=== PATIENT | male | born 1960 | race African-American/Black ===

== ENCOUNTER 2016-03-02 10:29 | Emergency (ER) | payer SELFPAY ==
[~2016-03-02] VITALS: Ht 177.8 cm; Wt 120.0 kg
[~2016-03-02 10:29] MED LIST: ATEN25TA PO; HYDR12.57 PO
[2016-03-02 10:31] VITALS: BP 124/91; PULSE 67; RESP 15; TEMP 97.9; O2SAT 99
--- NOTE | 2016-03-02 11:37 | PD ---
HPI Chief Complaint: ENT Complaint Time Seen by Provider: 11:35 Travel History International Travel<30 days: No Contact w/Intl Traveler<30days: No Traveled to known affect area: No History of Present Illness HPI 55-year-old male with history of hypertension presents to emergency department for evaluation of left ear. Patient states last night he cleaned his ears and noticed some bloody drainage. He does not recall trauma. He reports no pain. No changes in hearing. No recent illnesses, fever, or chills. He states that he thought about this he felt like he should get it checked out so he came to the emergency department today for evaluation. He has no symptoms at this time. No active bleeding this morning. No drainage on his pillow. No other symptoms to report. History Social History Alcohol Use: Yes (SOCIALLY) Tobacco Use: No Allergies-Medications (Allergen,Severity, Reaction): Coded Allergies: No Known Allergies (Verified , 03/02/16) Reported Meds & Prescriptions Reported Meds & Active Scripts Active Hydrochlorothiazide 12.5 Mg Cap 12.5 Mg PO DAILY Atenolol 25 Mg Tab 25 Mg PO DAILY Review of Systems Except as stated in HPI: all other systems reviewed are Neg Physical Exam Narrative GENERAL: Well-nourished, well-developed male patient, ambulatory in no acute distress SKIN: Warm and dry. HEAD: Normocephalic. No mastoid tenderness EARS: Bilateral pinnae and external canals appear within normal limits. Bilateral tympanic membranes without erythema, dullness or perforation. EYES: No scleral icterus. No injection or drainage. NECK: Supple, trachea midline. No JVD or lymphadenopathy. ENT: Mucosa pink and moist. No erythema or exudates. No uvular edema. No uvular , palatal, or tonsillar deviation. Airway patent. Nasal turbinates appear normal without nasal blood, purulent drainage or septal hematoma. CARDIOVASCULAR: Regular rate and rhythm without murmurs, gallops, or rubs. RESPIRATORY: Breath sounds equal bilaterally. No accessory muscle use. Data Data Last Documented VS Vital Signs Date Time Temp Pulse Resp B/P Pulse Ox O2 Delivery O2 Flow Rate FiO2 03/02/16 10:31 97.9 67 15 124/91 99 MDM Medical Screen Exam Complete: Yes Emergency Medical Condition: No Differential Diagnosis Abrasion versus tympanic membrane rupture versus otitis media versus otitis external Narrative Course 55-year-old male presents to emergency department for evaluation of bloody drainage from his left ear, an isolated incident last night. Physical exam is without any acute concern. Tympanic membrane of the left ureter appears intact. I do not see any bloody discharge within the canal or obvious trauma. Patient is encouraged to follow-up with his primary care provider and to return immediately with any acute worsening of symptoms. At this time there are no urgent or emergent needs for medical intervention identified. A medical screening exam was performed: At the time of evaluation the presenting medical condition was determined not to be of an emergent nature. The patient was given the option of receiving additional care, but declined. Patient was given options for additional community resources from which to obtain care. The Patient Has Been advised to seek medical attention for their presenting complaint. The patient has been advised to return to the ER at any time if an emergent condition develops. Primary Impression: Encounter for medical screening examination Condition: Stable Anne Guallpa Mar 02, 2016 11:37
== END 2016-03-02 11:50 | disposition left against medical advice (07) ==
LOC: NEPC 10:29
DX: H92.22 Otorrhagia, left ear (principal)
CPT/HCPCS: 99281

== ENCOUNTER → 2016-05-21 | Outpatient (CLI) | payer OTHER ==
[~2016-05-21] MED LIST changes: +GABA100C4 PO; +NAPR500T PO; +OMEP20TA PO; +PRED10PA2 PO
--- NOTE | 2016-05-21 10:51 | RADRPT ---
EXAM DATE/TIME: 05/21/2016 10:22 [facility] COMPARISON: KNEE RIGHT COMPLETE (4VWS), July 01, 2015, 21:52. INDICATIONS : Left lateral foot pain for 6 months. MEDICAL HISTORY : None. SURGICAL HISTORY : None. ENCOUNTER: Initial ACUITY: 4 - 6 months PAIN SCORE: 5/10 LOCATION: Left lateral foot. FINDINGS: Two view examination of the left foot demonstrates no soft tissue swelling, dislocation, or fracture. The calcaneus is intact. Bony mineralization is normal. CONCLUSION: 1. Negative examination. Jordon Smith MD on May 21, 2016 at 10:49 Board Certified Radiologist. This report was verified electronically.
== END ==
LOC: HRAD 10:05
PROVIDERS: ATTEND General Practice
DX: M79.672 Pain in left foot (principal)
CPT/HCPCS: 73620

== ENCOUNTER 2016-07-14 06:28 | Emergency (ER) | payer OTHER ==
[~2016-07-14] VITALS: Ht 177.8 cm; Wt 120.0 kg
[~2016-07-14 06:28] MED LIST changes: -GABA100C4 PO; -NAPR500T PO; -OMEP20TA PO; -PRED10PA2 PO
[2016-07-14 06:30] VITALS: BP 165/109; PULSE 72; RESP 18; TEMP 97.4; O2SAT 99
[2016-07-14] MEDS ORDERED: GABA100C4 PO (06:42)
[2016-07-14 06:43] VITALS: BP 146/107; PULSE 59; RESP 18; O2SAT 97
[2016-07-14] MEDS ORDERED: KETOROLAC TROMETHAMINE 30 MG/ML (IVP) VIAL IV PUSH ONE (07:00)
[2016-07-14] MEDS ORDERED: PRED10PA2 PO (07:06)
[2016-07-14] MEDS ORDERED: NAPR500T PO (07:07)
[2016-07-14] MEDS ORDERED: OMEP20TA PO (07:07)
--- NOTE | 2016-07-14 07:07 | PD ---
HPI Chief Complaint: Flank/Kidney Pain Time Seen by Provider: 06:54 Travel History International Travel<30 days: No Contact w/Intl Traveler<30days: No Traveled to known affect area: No History of Present Illness HPI This is a 56 year old male who presents to the emergency department with 3 days of right sided low back pain, intermittent, worse with walking, improved with rest described as a shooting pain from the low back down to the back of his thigh. He says it feels like sciatica. He's had sciatica in the left leg before but this is the first time he had pain like this in the right leg. He denies any dysuria, hematuria, frequency or urgency and denies any weakness or numbness. He denies any loss of his bowels or bladder. He's been taking some kind of nerve pill that he has for his feet but it has not been helping. PFSH Past Medical History Cardiovascular Problems: Yes (HTN) High Cholesterol: Yes Diabetes: Yes (BORDERLINE) Patient Takes Glucophage: No Diminished Hearing: No Gastrointestinal Disorders: Yes Genitourinary: No Hypertension: Yes Musculoskeletal: Yes (LOWER BACK(L4 AND L5 BULGING DISK PER PT).) Respiratory: No Tetanus Vaccination: Unknown Influenza Vaccination: No Past Surgical History Surgical History: No Previous Surgery Other Surgery: No Social History Alcohol Use: Yes (SOCIALLY) Tobacco Use: No Substance Use: No Allergies-Medications (Allergen,Severity, Reaction): Coded Allergies: No Known Allergies (Verified , 07/14/16) Reported Meds & Prescriptions Reported Meds & Active Scripts Active Hydrochlorothiazide 12.5 Mg Cap 12.5 Mg PO DAILY Atenolol 25 Mg Tab 25 Mg PO DAILY Reported Gabapentin 100 Mg Cap Unknown Dose PO BID PRN Review of Systems Except as stated in HPI: all other systems reviewed are Neg Physical Exam Narrative GENERAL:Well appearing, no acute distress SKIN: Focused skin assessment warm and dry. HEAD: Atraumatic. Normocephalic. EYES: Pupils equal and round. No injection or drainage. ENT: Moist mucous membranes NECK: Trachea midline. CARDIOVASCULAR: Regular rate and rhythm. No murmur appreciated. Both feet are well perfused. RESPIRATORY: Clear to auscultation. Breath sounds equal bilaterally. GASTROINTESTINAL: Abdomen soft, non-tender, nondistended. MUSCULOSKELETAL: No obvious deformities. Pain with straight leg raise of the right leg. No pain with contralateral leg raise. Tender to palpation along the right sacroiliac region NEUROLOGICAL: Awake and alert. No obvious cranial nerve deficits. 5 out of 5 strength in the bilateral lower extremities. PSYCHIATRIC: Appropriate mood and affect; insight and judgment normal. Data Data Last Documented VS Vital Signs Date Time Temp Pulse Resp B/P Pulse Ox O2 Delivery O2 Flow Rate FiO2 07/14/16 06:43 59 18 146/107 97 Room Air 07/14/16 06:30 97.4 MDM Medical Decision Making Medical Screen Exam Complete: Yes Emergency Medical Condition: Yes Differential Diagnosis Lumbosacral radiculopathy, cauda equina syndrome, epidural abscess, lower back strain Narrative Course This is a 56-year-old male who presents to the emergency department with shooting pain from the right lower back down to his right leg. Patient's symptoms are consistent with right lumbosacral radiculopathy. He has a normal neurovascular exam with no red flags for cauda equina syndrome or epidural abscess. I think patient can safely be discharged home with anti-inflammatories , steroids, and a PPI. He was instructed to follow-up with his primary care physician. Diagnosis Primary Impression: Lumbosacral radiculopathy Patient Instructions: General Instructions Additional Instructions: If you develop weakness of your legs, difficulty walking, numbness of your legs or your genital or rectal area, loss of your bowel or bladder, or difficulty urinating return to the emergency department immediately. Followup with your primary care physician in one week if your symptoms have not improved. Med/Other Pt SpecificInfo: Prescription(s) given Scripts Omeprazole 20 Mg Tab20 Mg PO DAILY #30 TAB Ref 0 Prov:Arpita Goncalves MD 07/14/16 Naproxen 500 Mg [id number] Mg PO BID PRN (PAIN SCALE 4 TO 10) #20 TAB Prov:Arpita Goncalves MD 07/14/16 Prednisone (48) 10 mg tab Dose Pack 10 Mg [id number] Mg PO DIRECTED #1 DSPK Ref 0 Prov:Arpita Goncalves MD 07/14/16 Disposition: 01 DISCHARGE HOME Condition: Stable Arpita Goncalves MD July 14, 2016 07:07
== END 2016-07-14 07:45 | disposition home or self-care (01) ==
LOC: NEPE 06:28
DX: M54.17 Radiculopathy, lumbosacral region (principal); I10 Essential (primary) hypertension
CPT/HCPCS: 96374; 99284; J1885

== ENCOUNTER 2016-12-03 22:11 | Emergency (ER) | payer OTHER ==
[~2016-12-03] VITALS: Ht 180.3 cm; Wt 127.0 kg
[~2016-12-03 22:11] MED LIST changes: +GABA100C4 PO; +NAPR500T PO; +OMEP20TA PO; +PRED10PA2 PO
[2016-12-03 22:15] VITALS: BP 136/94; PULSE 68; RESP 16; TEMP 97.8; O2SAT 100
[2016-12-03] MEDS ORDERED: methylPREDNISolone SOD SUCC 125 MG/2 ML VIAL IM ONE (23:15)
[2016-12-03] MEDS ORDERED: KETOROLAC TROMETHAMINE 60 MG/2 ML (IM) VIAL IM ONE (23:15)
[2016-12-03] MEDS ORDERED: CYCLOBENZAPRINE HCL 10 MG TAB PO ONE (23:15)
[2016-12-04] MEDS ORDERED: MELO-1 PO (00:17)
[2016-12-04] MEDS ORDERED: CYCL1TAB29 PO (00:17)
--- NOTE | 2016-12-04 00:18 | PD ---
HPI Chief Complaint: Back/ Neck Pain or Injury Time Seen by Provider: 22:56 Travel History International Travel<30 days: No Contact w/Intl Traveler<30days: No Traveled to known affect area: No History of Present Illness HPI Patient is a 56-year-old male presenting to the chart for evaluation of back pain. Patient states it's been ongoing for 1 week. He reports a history of the same about a year ago and he reports getting an injection which helped alleviate the pain. That the pain radiates across his back and down his left leg. Pain is alleviated somewhat with rest, exacerbated with prolonged standing and walking. He denies any bladder or bowel incontinence, no saddle paresthesia, no weakness in his extremities. He denies any injury or trauma that would've exacerbated the pain. [facility], [facility] Past Medical History Cardiovascular Problems: Yes High Cholesterol: Yes Diabetes: Yes (BORDERLINE) Diminished Hearing: No Gastrointestinal Disorders: Yes Genitourinary: No Hypertension: Yes Musculoskeletal: Yes (LOWER BACK(L4 AND L5 BULGING DISK PER PT).) Respiratory: No Immunizations Current: Yes Past Surgical History Surgical History: No Previous Surgery Other Surgery: No Social History Alcohol Use: Yes (SOCIALLY) Tobacco Use: No Substance Use: No Allergies-Medications (Allergen,Severity, Reaction): Coded Allergies: No Known Allergies (Verified , 12/03/16) Reported Meds & Prescriptions Reported Meds & Active Scripts Active Atenolol 25 Mg Tab 25 Mg PO DAILY Review of Systems Except as stated in HPI: all other systems reviewed are Neg Musculoskeletal: Positive: Myalgias, Cramping, Pain Physical Exam Narrative GENERAL: Well-developed, well-nourished, alert male. Resting comfortably in no acute distress. SKIN: Warm and dry. HEAD: Atraumatic. Normocephalic. EYES: Pupils equal and round. No scleral icterus. No injection or drainage. ENT: No nasal bleeding or discharge. Mucous membranes pink and moist. NECK: Trachea midline. No JVD. CARDIOVASCULAR: Regular rate and rhythm. RESPIRATORY: No accessory muscle use. Clear to auscultation. Breath sounds equal bilaterally. GASTROINTESTINAL: Abdomen soft, non-tender, nondistended. Hepatic and splenic margins not palpable. MUSCULOSKELETAL: Extremities without clubbing, cyanosis, or edema. No obvious deformities. Palpation appears by the musculature in the lumbar region on the left side as well as left SI joint. NEUROLOGICAL: Awake and alert. No obvious cranial nerve deficits. Motor grossly within normal limits. Five out of 5 muscle strength in the arms and legs. Normal speech. PSYCHIATRIC: Appropriate mood and affect; insight and judgment normal. Data Data Last Documented VS Vital Signs Date Time Temp Pulse Resp B/P (MAP) Pulse Ox O2 Delivery O2 Flow Rate FiO2 12/03/16 23:03 14 12/03/16 22:15 97.8 68 136/94 (108) 100 Room Air Orders Orders Ketorolac Inj (Toradol Inj) (12/03/16 23:15) Methylprednisolone So Succ Inj (Solumedr (12/03/16 23:15) Cyclobenzaprine (Flexeril) (12/03/16 23:15) Ed Discharge Order (12/04/16 00:10) [facility] Medical Decision Making Medical Screen Exam Complete: Yes Emergency Medical Condition: Yes Medical Record Reviewed: Yes Interpretation(s) Vital Signs Date Time Temp Pulse Resp B/P (MAP) Pulse Ox O2 Delivery O2 Flow Rate FiO2 12/03/16 23:03 14 12/03/16 22:15 97.8 68 16 136/94 (108) 100 Room Air Differential Diagnosis Sciatica versus discogenic pain versus spasm versus strain versus other Narrative Course Patient is a 56-year-old male that presented to emergency for evaluation of left lower back pain. There are no focal deficits on exam, patient is neurovascularly intact. Patient reports a history of the same and was requesting an injection. He states that his primary doctor had given him injection in the past which worked well for him. Upon review of medical records patient was given an injection of Solu-Medrol. Patient was given an injection of Toradol, Solu-Medrol and oral Flexeril in the emergency department. Patient was reassessed approximately one hour after administration. Patient reports improvement in his pain. He was advised to continue gentle range of motion exercises, avoid bed rest, avoid exacerbating activities. He was advised to follow-up with his primary doctor. He was encouraged return to emergency department for any new or worsening symptoms. Patient is stable for discharge. Diagnosis Primary Impression: Sciatica Qualified Codes: M54.32 - Sciatica, left side Additional Impression: Lumbago Referrals: Primary Care Physician Patient Instructions: General Instructions, Sciatica (ED) Additional Instructions: Follow-up with her primary doctor Take medications as needed and as directed for pain Avoid bed rest, avoid exacerbating activities, apply warm heat to the affected area Return to emergency department for any new or worsening symptoms Med/Other Pt SpecificInfo: Prescription(s) given Scripts Meloxicam (Meloxicam) 15 Mg Tab 15 MG PO DAILY Y for PAIN SCALE 1 TO 10, #15 TAB 0 Refills Prov: Allie Pritchett 12/04/16 Cyclobenzaprine (Flexeril) 10 Mg Tab 10 MG PO TID Y for MUSCLE SPASM, #30 TAB 0 Refills Prov: Allie Pritchett 12/04/16 Disposition: 01 DISCHARGE HOME Condition: Stable Allie Pritchett Dec 04, 2016 00:18
[2016-12-04 00:21] VITALS: BP 142/88; TEMP 98.3
== END 2016-12-04 00:35 | disposition home or self-care (01) ==
LOC: NEPD 22:11
DX: M54.32 Sciatica, left side (principal); M54.5 Low back pain; E11.9 Type 2 diabetes mellitus without complications; I10 Essential (primary) hypertension
CPT/HCPCS: 96372; 99284; J1885; J2930